=== PATIENT | female | born 1960 | race Caucasian/White ===

== ENCOUNTER → 2021-09-16 | Outpatient (REF) | payer OTHER | LOC: M LAB REF 16:31 | PROVIDERS: ATTEND Dermatology | DX: M25.071 Hemarthrosis, right ankle (principal) ==

== ENCOUNTER → 2023-08-03 | Outpatient (CLI) | payer MEDICARE, OTHER ==
[2023-08-03 18:11] LABS: TOTAL 25(OH) VITAMIN D 55.8 NG/ML (20.0-100.0)
[2023-08-03 19:14] LABS: % LABILE ALKALINE PHOSPHATASE 68.3 %
== END ==
LOC: M LAB 16:36
PROVIDERS: ATTEND Family Medicine
DX: R74.8 Abnormal levels of other serum enzymes (principal); E55.9 Vitamin D deficiency, unspecified; N76.0 Acute vaginitis

== ENCOUNTER → 2023-11-23 | Outpatient (CLI) | payer MEDICARE, OTHER ==
[~2023-11-23] MED LIST: E-Z-GAS II EFFERVESCENT PACKET (SODIUM BICARB./CITRIC ACID/SIMETHICONE) As Ordered ONE; E-Z-HD 98% w/w 340GM SUSP BTL As Ordered ONE; E-Z-PAQUE 96% w/w SUSP 176GM BTL As Ordered ONE
== END ==
LOC: M RAD 08:59
PROVIDERS: ATTEND Family Medicine
DX: R13.10 Dysphagia, unspecified (principal); K21.9 Gastro-esophageal reflux disease without esophagitis